=== PATIENT | female | born 1960 | race Caucasian/White ===

== ENCOUNTER 2018-02-11 06:26 | Day surgery (SDC) | payer BC ==
[~2018-02-11] VITALS: Ht 162.6 cm; Wt 83.9 kg
[~2018-02-11 06:26] MED LIST: ESTRADIOL1 EA10 TD; TRIAMTERENE-HC1 EAC3 PO; ZOVIRAX400 MG PO
--- NOTE | 2018-02-11 08:02 | NUR ---
[facility]18 [facility]802 [facility] SLEEPY WITH NO C/O'S. ABD SOFT. PASSING FLATUS.
--- NOTE | 2018-02-12 07:48 | NUR ---
MET WITH PT'S JL WHO WAS WAITING IN [employer]. OUTLINED WHAT HE COULD EXPECT, AND HE SEEMED SOMEWHAT RELIEVED. HIS PAGER WENT OFF, AND WILL CONTINUE TO FOLLOW A NEEDED
--- NOTE | 2018-02-12 09:10 | OR ---
[facility] [address], [place] [address] Signed DATE OF OPERATION: 02/11/2018 SURGEON: Shawn Canchola MD PREOPERATIVE DIAGNOSIS: Episodic minimal rectal bleeding and family history of colon cancer (mother). POSTOPERATIVE DIAGNOSIS: Diverticulosis, dominantly sigmoid. PROCEDURE: Total colonoscopy to cecum. ANESTHESIA: Intravenous sedation, fentanyl 100 mcg, Versed 6 mg. INDICATION: This 57-year-old white woman is a patient Dr. Enriquez and Dr. Jackson. She underwent what sounds like a lateral internal sphincterotomy in [place] a few years ago. She has undergone colonoscopy by Dr. Win in [place] in the past as well. She does have family history of colon cancer in her mother as well as episodic minimal rectal bleeding herself. She had no diarrhea or constipation. She is admitted at this time to undergo colonoscopy. She understands the risks of bleeding, infection, and perforation. FINDINGS: The prep was excellent. Complete colonoscopy was undertaken to the cecum without problem. She had diverticula in the sigmoid and left colon and a few scattered into the right colon as well. There is no sign of polyp, colitis, or other abnormality. DESCRIPTION OF PROCEDURE: The patient was brought to the endoscopy suite and placed in lateral decubitus position, given intravenous sedation to the point of slurred speech and nystagmus. Digital rectal examination was normal. She did have a few runs of ventricular bigeminy prior to sedation, which resolved entirely by the time of procedure. Digital rectal examination was normal. An Olympus video colonoscope was passed in the rectum and manipulated throughout the colon ultimately intubating the cecum itself. The ileocecal valve and appendiceal orifice were normal. The scope was withdrawn from that point and careful inspection Electronically Signed By: SHAWN CANCHOLA MD 02/12/18 0910 PATIENT NAME: CHERRY ORTEZ OPERATIVE REPORT DATE OF : 62 REPORT #: [id number] PHYSICIAN: SHAWN CANCHOLA MD PCP: NESHA JACKSON DO REPORT IS CONFIDENTIAL AND NOT TO BE RELEASED WITHOUT AUTHORIZATION [facility] [address], [place] [address] Signed upon withdrawal of scope showed only diverticular changes extending from the right transverse colon distalward including the left and sigmoid. Retroflexed view of the rectum was normal. The scope was removed and the patient was taken to recovery in good condition. CONCLUDING DIAGNOSIS: Diverticulosis. No evidence of polyps or colitis. PLAN: Recommend high-fiber diet. Repeat colonoscopy in 5 years considering family history, sooner if indicated. MD DAYNA Lynch/JUAN /[id number] cc: Dr. Vasile Enriquez Copies: ~ Electronically Signed By: SHAWN CANCHOLA MD 02/12/18 0910 PATIENT NAME: CHERRY ORTEZ OPERATIVE REPORT DATE OF : 62 REPORT #: [id number] PHYSICIAN: SHAWN CANCHOLA MD PCP: NESHA JACKSON DO REPORT IS CONFIDENTIAL AND NOT TO BE RELEASED WITHOUT AUTHORIZATION
== END 2018-02-11 08:40 | disposition home or self-care (01) ==
LOC: OPS 06:26 → DS 06:26 → OPS 06:45 → DS 06:45 → OPS 08:40
PROVIDERS: Surgery
PROC: 0DJD8ZZ Inspection of Lower Intestinal Tract, Via Natural or Artificial Opening Endoscopic (ICD-10-PCS; principal; 2018-02-11 06:45)
DX: K57.30 Diverticulosis of large intestine without perforation or abscess without bleeding (principal); K60.2 Anal fissure, unspecified; I10 Essential (primary) hypertension; Z80.0 Family history of malignant neoplasm of digestive organs; Z88.1 Allergy status to other antibiotic agents; Z88.8 Allergy status to other drugs, medicaments and biological substances
CPT/HCPCS: 99153; G0500; J2250; J3010; J7120

== ENCOUNTER 2024-06-23 07:25 | Day surgery (SDC) | payer BC ==
[~2024-06-23] VITALS: Ht 162.6 cm; Wt 85.5 kg
[~2024-06-23 07:25] MED LIST changes: +ATIVAN0.5 MG PO; +DOTTI1 EAC2 TD; +IBLOOD GLUCOSE TEST STRIP 1 EA TEST VI PRN; +LACTATED RINGER'S 1,000 ML IV SCH; +LIDOCAINE HCL 1% 5 ML SDV INJ ONE; +LOSARTAN-HCTZ1 EACH PO; +MIDAZOLAM HCL 5 MG/5 ML VIAL IV PRN; +fentaNYL citrate 100 MCG/2 ML VIAL IV PRN
[2024-06-23 07:46] VITALS: BP 149/74
--- NOTE | 2024-06-23 07:56 | NUR ---
PT NOT AVAILABLE FOR VISIT. PROVIDED PRAYER.
[2024-06-23] MEDS ORDERED: MULTIVITAMIN1 EACH PO (08:03)
[2024-06-23] MEDS ORDERED: VITAMIN D3 MA125 MCG PO (08:04)
[2024-06-23] MEDS ORDERED: CALCIUM-MAG-ZI1 EAC2 PO (08:05)
[2024-06-23] MEDS ORDERED: CANDICIDAL CAP1 EACH PO (08:05)
[2024-06-23] MEDS ORDERED: CLARITIN10 M2 PO (08:07)
[2024-06-23] MEDS ORDERED: fentaNYL citrate 100 MCG/2 ML VIAL ONE (08:14)
[2024-06-23] MEDS ORDERED: MIDAZOLAM HCL 5 MG/5 ML VIAL ONE (08:14)
--- NOTE | 2024-06-23 09:18 | NUR ---
06/23/24 0918 [facility] [place] 0911 PT ARRIVED TO PACU VIA STREACHER. PT AWAKE. PT ATTACHED TO ALL MONITORS. BREATHING EQUAL AND UNLABORED. REPORT TAKEN FROM TERRY ARNOLD. PT REPORTS NO PAIN OR NAUSEA. PT ON 3L OF OXYGEN VIA NC. 0916 PT REMOVED FROM OXYGEN DUE TO O2 SAT ABOVE 96% ON 3L. PT O2 SAT STAYING ABOVE 90% ON RA.
[2024-06-23 09:38] VITALS: BP 118/74
--- NOTE | 2024-06-23 18:35 | OR ---
[facility] [address] [place], [place] [address] Signed DATE OF OPERATION: 06/23/2024 SURGEON: Shawn Canchola MD PREOPERATIVE DIAGNOSES: 1. History of diverticulosis. 2. History of colon cancer in mother (age 81). POSTOPERATIVE DIAGNOSES: 1. Pandiverticulosis. 2. Polyp of rectosigmoid, greater than 1 cm. PROCEDURE: Total colonoscopy to cecum with cold snare and cold morcellation polypectomy x1. ANESTHESIA: Intravenous sedation; fentanyl 150 mcg and Versed 5 mg. INDICATION: This 63-year-old white woman is a patient of REINALDO Mccain. She has family history of colon cancer in her mother at age 81. Her last colonoscopy was in 2018 at which time, she was noted to have sigmoid diverticulosis. She has had some perianal symptoms including anal fissure like symptoms. She may have a symptomatic rectocele as well. She is admitted at this time to undergo colonoscopy on the basis of family history and her symptoms. She understands the risk of bleeding, infection, and perforation. FINDINGS: The prep was excellent. Complete colonoscopy was undertaken to the cecum with full intubation of the cecum. She had numerous diverticula throughout the colon most dominantly in the sigmoid and left colon. She additionally had a sessile polyp approximately 1 cm in size in the rectosigmoid, which was excised with combination of cold snare technique and cold morcellation technique. There were no other findings of note. PROCEDURE IN DETAIL: The patient was brought to the endoscopy suite and placed in the lateral decubitus position, given intravenous sedation to the point of slurred speech and nystagmus. Digital rectal examination was normal. An Olympus video colonoscope was passed in the rectum and manipulated throughout the Electronically Signed By: SHAWN CANCHOLA MD 06/23/24 1835 PATIENT NAME: CHERRY ORTEZ OPERATIVE REPORT DATE OF : 62 REPORT #: [id number] PHYSICIAN: SHAWN CANCHOLA MD PCP: SARAH GREEN PAC REPORT IS CONFIDENTIAL AND NOT TO BE RELEASED WITHOUT AUTHORIZATION [facility] [address] [place], [place] [address] Signed colon noting numerous diverticula of the sigmoid and left colon. Scope was ultimately passed to the cecum. Ileocecal valve and appendiceal orifice were normal. Scope was withdrawn. Examination throughout showed no sign of abnormality other than diverticula until the rectosigmoid, where a sessile polyp approximately a cm in size was noted. Narrow-band imaging confirmed this likely to be an adenoma. Using cold snare technique and ultimately additional cold morcellation technique, the polyp was completely excised. Retroflexed view of the rectum was normal. The scope was removed and the patient was taken to the recovery room in good condition. CONCLUDING DIAGNOSES: Polyp x1 and pandiverticulosis. PLAN: Recommend repeat colonoscopy in 5 years in relation to family history and history of polyp itself. It can and should be done sooner if there are symptoms of note. She will return to the ongoing care of REINALDO Mccain. MD DAYNA Lynch/JUAN /[id number] cc: Sarah Green PA-C Copies: SARAH GREEN ~ Electronically Signed By: SHAWN CANCHOLA MD 06/23/24 1835 PATIENT NAME: CHERRY ORTEZ OPERATIVE REPORT DATE OF : 62 REPORT #: [id number] PHYSICIAN: SHAWN CANCHOLA MD PCP: SARAH GREEN REPORT IS CONFIDENTIAL AND NOT TO BE RELEASED WITHOUT AUTHORIZATION
--- NOTE | 2024-06-24 10:37 | PATH ---
[facility] [address] [place], [place] [address] Signed SPECIMEN(S): A RECTSIGMOID POLYP SPECIMEN SOURCE: A. RECTSIGMOID POLYP CLINICAL HISTORY: History of sigmoid diverticulosis, family history (mother) colon cancer FINAL PATHOLOGIC DIAGNOSIS: Colon, rectosigmoid, polypectomy: - Hyperplastic polyp BRP MICROSCOPIC EXAMINATION: Histologic sections of all submitted blocks are examined by light microscopy. These findings, together with the gross examination, support the pathologic diagnosis. GROSS DESCRIPTION: The specimen, labeled and designated "[place], rectosigmoid polyp," is received in formalin and consists of ten manjarrez soft tissue fragments, ranging from 0.1-0.7 cm. Entirely submitted in (A1). VB (under the direct supervision of a pathologist) The Gross Description was prepared using a voice recognition system. The report was reviewed for accuracy; however, sound-alike word errors, addition and/or deletions may occur. If there is any question about this report, please contact Client Services. ADDITIONAL NOTES: Immunohistochemical and/or in situ hybridization studies if performed in this case included appropriate positive controls that reacted as expected. This test was developed and its performance characteristics determined by [facility]. It has not been cleared or approved by the U.S. Food and Drug Administration. The FDA has determined that such clearance or approval is not necessary. This test is used for clinical purposes. It should not be regarded as investigational or for research. [facility] is certified under the Clinical Laboratory Improvement Amendments of 1988 (CLIA) as qualified to perform high complexity clinical laboratory testing. PATIENT NAME: CHERRY ORTEZ PATHOLOGY DATE OF : 62 REPORT #: [id number] PHYSICIAN: TETO SHARMA PCP: FANY WALTON PAC REPORT IS CONFIDENTIAL AND NOT TO BE RELEASED WITHOUT AUTHORIZATION [address] [place], [place] [address] Signed PERFORMING LABORATORY: Technical component was performed by [facility], [address] [place] [address] (CLIA# [id number]). [facility] [address] [id number] Diagnostician: Bud Fatima MD Pathologist Electronically Signed 06/24/2024 Copies: ~ PATIENT NAME: CHERRY ORTEZ PATHOLOGY DATE OF : 62 REPORT #: [id number] PHYSICIAN: TETO SHARMA PCP: FANY WALTON PAC REPORT IS CONFIDENTIAL AND NOT TO BE RELEASED WITHOUT AUTHORIZATION
== END 2024-06-23 09:48 | disposition home or self-care (01) ==
LOC: OPS 07:25 → DS 07:25 → OPS 08:30
PROVIDERS: ATTEND Surgery
PROC: 0DBN8ZZ Excision of Sigmoid Colon, Via Natural or Artificial Opening Endoscopic (ICD-10-PCS; principal; 2024-06-23 08:30)
DX: Z12.11 Encounter for screening for malignant neoplasm of colon (principal); K63.5 Polyp of colon; K62.1 Rectal polyp; K57.30 Diverticulosis of large intestine without perforation or abscess without bleeding; Z87.19 Personal history of other diseases of the digestive system; Z80.0 Family history of malignant neoplasm of digestive organs; Z90.710 Acquired absence of both cervix and uterus; Z88.1 Allergy status to other antibiotic agents; Z88.8 Allergy status to other drugs, medicaments and biological substances; Z79.899 Other long term (current) drug therapy
CPT/HCPCS: 99153; G0500; J2250; J3010; J7121